=== PATIENT | female | born 1970 | race Caucasian/White ===

== ENCOUNTER 2017-07-06 07:48 | Emergency (ER) | payer SELFPAY ==
[2017-07-06 08:06] LABS: Bilirubin Negative (Negative); Blood, Urine Negative (Negative); Clarity CLEAR (Clear); Glucose, Urine (Dipstick) Negative (Negative); Leukocyte Negative (Negative); Nitrite Negative (Negative); Protein, Urine (Dipstick) Negative (Neg-Trace); Specific Gravity, Urine 1.009 (1.002-1.036); Urobilinogen 0.2 mg/dL (0.2-1.0)
[2017-07-06 08:36] LABS: #Eosinphils 0.1 thou/uL (0.0-0.7); #Lymphocytes 1.5 thou/uL (1.20-3.40); #Monocytes 0.3 thou/uL (0.11-0.59); #Neutrophils 3.2 thou/uL (1.40-6.50); %Basophils 0.7 % (0.0-1.0); %Eosinophils 1.9 % (0.0-10.0); %Lymphocytes 29.2 % (21.0-51.0); %Monocytes 5.7 % (0.0-10.0); %Neutrophils 62.5 % (42.0-75.0); Hemoglobin 13.9 g/dL (12.0-16.0); Mean Corpuscular HGB CONC 33.2 g/dL (32.0-36.0); Mean Corpuscular Hemoglobin 31.3 pg (27.0-31.0); Mean Corpuscular Volume 94.2 fl (81.0-99.0); Mean Platelet Volume 9.3 fL (7.4-10.4); Platelet Count 180 thou/uL (130-400); RBC Distribution Width 11.3 % (11.5-14.5); Red Blood Cell (RBC) Count 4.43 mill/uL (4.20-5.40); White Blood Cell (WBC) Count 5.1 thou/uL (4.8-10.8)
[2017-07-06 08:57] LABS: ALT (SGPT) 16 U/L (8-55); AST (SGOT) 28 U/L (5-34); Albumin 4.8 g/dL (3.5-5.0); Alkaline Phosphatase 62 U/L (40-150); Anion Gap 17 mmol/L (10-20); BUN (Urea Nitrogen) 10 mg/dL (7.0-18.7); Bilirubin, Total 1.4 mg/dL (0.2-1.2); Calc. Creatinine Clearance 0 mL/min (70-130); Calcium 11.1 mg/dL (7.8-10.44); Carbon Dioxide 20 mmol/L (22-29); Chloride 107 mmol/L (98-107); Estimated GFR-MDRD 77; Globulin 3.5 g/dL (2.4-3.5); Glucose 85 mg/dL (70-105); Lipase 24 U/L (8-78); Potassium 4.3 mmol/L (3.5-5.1); Protein, Total 8.3 g/dL (6.0-8.3); Sodium 140 mmol/L (136-145)
[2017-07-06] MEDS ORDERED: Morphine 4 MG/ML VIAL ONE ×2 (09:19→10:32)
[2017-07-06] MEDS ORDERED: Ondansetron HCl/PF 4 MG/2 ML Vial ONE (09:19)
[2017-07-06 09:23] LABS: BHCG - Serum Negative (NEGATIVE); Pregs Control Background? CLEAR/WHITE (CLR/WHITE); Pregs Control Bar Appear? YES (CONTROL BAR)
--- NOTE | 2017-07-06 10:32 | ULT ---
RIGHT UPPER QUADRANT GALLBLADDER ULTRASOUND: HISTORY: Gallbladder pain. COMPARISON: None. FINDINGS: The visualized portions of the pancreas are unremarkable. The common bile duct is just under 6 mm in size. The liver measures 15 cm in length. The main portal vein is patent with antegrade flow. The common bile duct measures 4 mm. Normal gall bladder wall thickness. There is cholelithiasis. The right kidney measures 9.8 x 4.3 x 4.6 cm without mass, hydronephrosis, or abnormal calcifications. IMPRESSION: Cholelithiasis without cholecystitis. POS: C
== END 2017-07-06 10:30 | disposition home or self-care (01) ==
LOC: ERS 07:48
DX: K80.20 Calculus of gallbladder without cholecystitis without obstruction (principal); E03.9 Hypothyroidism, unspecified; M19.90 Unspecified osteoarthritis, unspecified site; Z79.899 Other long term (current) drug therapy
CPT/HCPCS: 76705; 80053; 81003; 83690; 84703; 85025; 93005; 96361; 96374; 96375; 96376; J2270; J2405

== ENCOUNTER 2017-07-06 13:58 | Observation (INO) | payer SELFPAY ==
[2017-07-06] MEDS ORDERED: Ondansetron HCl/PF 4 MG/2 ML Vial ONE (15:48)
[2017-07-06] MEDS ORDERED: Fentanyl 100 MCG/2 ML VIAL ONE (15:48)
--- NOTE | 2017-07-06 17:13 | PDOC.EVN ---
Event Note - Event Note Event Note: Attedning H&P I personally evaluated the patient and discussed the management with Dr. Asencio. I have reviewed the H&P and it is repeated by me. I agree with the History, Examination, Assessment and Plan documented above with any addition or exceptions noted below. Ms. Thornton has intractable n/v. She has RUQ pain radiating to her back. Her exam is significant positive Ramirez's sign but absent rebound tenderness and her abdomen is not rigid. Her CBC is normal. Afrebrile. Vitals normal. Appears to have symptomatic gallstones. Dr Velazquez of [facility] has kindly agreed to see her.
[2017-07-06] MEDS ORDERED: Sodium Chloride 0.9% 1,000 ML IV SCH (17:27)
[2017-07-06] MEDS ORDERED: Ondansetron HCl/PF 4 MG/2 ML Vial IVP PRN ×2 (17:27→17:28)
[2017-07-06] MEDS ORDERED: Ondansetron ODT 4 MG TAB SL PRN (17:27)
[2017-07-06 17:37] VITALS: BMI 25.5
[2017-07-06] MEDS: Sodium Chloride 0.9% 1,000 ML IV SCH (17:58)
[2017-07-06] MEDS: Morphine 4 MG/ML VIAL SLOW IVP PRN ×2 (18:07→22:40)
[2017-07-06] MEDS: Promethazine HCl 25 MG/ML VIAL IM/IV PRN (18:11)
[2017-07-06 18:28] LABS: Bilirubin, Direct 0.4 mg/dL (0.1-0.3); Bilirubin, Total 1.2 mg/dL (0.2-1.2)
--- NOTE | 2017-07-07 00:14 | HP-2 ---
CODE STATUS: FULL. PRIMARY CARE PHYSICIAN: [facility] jorge. ATTENDING PHYSICIAN: Bc Kenney MD RESIDENT: Sea Asencio DO HISTORIAN: Patient. CHIEF COMPLAINT: Nausea, vomiting, abdominal pain. HISTORY OF PRESENT ILLNESS: The patient had an onset of intractable nausea and vomiting with right upper quadrant pain and diarrhea started 2-1/2 days ago without associated fever or chills. The patient has had 1 similar episode approximately two months ago without association to include food; however, the previous episode was not severe and did not last as long. The patient presented to the ER earlier this morning, where she was evaluated and ultrasound showed a cholelithiasis without cholecystitis. The patient was given Tylenol No. 3 and Zofran and discharged home with instructions to follow up with the surgeon as outpatient. The patient returned to the emergency room due to the pain. We were called for admission due to intractable nausea, vomiting, and uncontrolled abdominal pain. PAST MEDICAL HISTORY: Hypothyroid and GERD. PAST SURGICAL HISTORY: Carpal tunnel release on the left and unknown jaw surgery in 1979. ALLERGIES: No known drug allergies. MEDICATIONS: Synthroid 50 mcg daily, omeprazole 40 mg daily, Motrin 600 mg b.i.d., Tylenol No. 3 q.4-6 hours, and Zofran 4 mg q.6 hours p.r.n. SOCIAL HISTORY: The patient is a former smoker, former alcohol addict, and a former multi-substance abuser; however, the patient has had none of these things in the past 8 years. REVIEW OF SYSTEMS: General: The patient denies fever, chills, changes in appetite, night sweats. HEENT: Denies changes in vision, eye pain, nasal congestion. Respiratory: Denies cough, congestion, shortness of breath. Cardiovascular: Denies any chest pain, palpitations, edema. Gastrointestinal: Admits to nausea, vomiting, diarrhea without constipation, and has abdominal pain. Genitourinary: Denies incontinence, dysuria. Skin: Denies any rashes or lesions. Musculoskeletal: Denies any pain or tenderness. Neurologic: Denies any weakness or numbness. Psychiatric: Denies anxiety or depression. PHYSICAL EXAMINATION: VITAL SIGNS: Blood pressure 128/85, pulse 70, respiratory rate 17, T-max 97.8, pulse ox 99% on room air, current weight 68.5 kg. GENERAL: The patient is alert, oriented x3, in no apparent distress, well nourished, and appropriately interactive. HEENT: PERRLA. EOMI. Conjunctivae within normal limits. NECK: Supple. CARDIOVASCULAR: Regular rate and rhythm. No murmurs or gallops. RESPIRATORY: Normal effort. No retractions. Clear to auscultation bilaterally. SKIN: Warm and dry without cyanosis. ABDOMEN: Rigid. Tender to palpation in the right upper quadrant without rebound tenderness. Bowel sounds in all 4 quadrants. There are no masses or distention. EXTREMITIES: No clubbing or cyanosis. MUSCULOSKELETAL: Structure is normal. Tone is normal. NEUROLOGIC: No focal neurological deficit. Sensation is within normal limits. Cranial nerves II-XII are grossly intact. PSYCHIATRIC: Appropriate. LABORATORY DATA: CBC: Hemoglobin is 13.9, hematocrit 41.7, white count 5.1, platelets 180. CMP: Sodium 140, potassium 4.3, chloride 107, bicarbonate 20, BUN 10, creatinine 0.79, glucose is 85, calcium is 11.1, total serum protein 8.3 , albumin is 4.8, total bilirubin is 1.4, AST 26, ALT 16, alkaline phosphatase is 62. ACT is negative. Lipase is 24. UA, specific gravity 1.009, blood negative, protein negative, leukocyte esterase negative, nitrites negative, ketones negative, glucose negative, rbc's negative, wbc's negative, bacteria negative. IMAGING: Abdominal ultrasound shows cholelithiasis without cholecystitis. ASSESSMENT AND PLAN: This is a 47-year-old female with intractable nausea and vomiting secondary to biliary colic. 1. Intractable nausea and vomiting. Make n.p.o. IV normal saline at 100 mL per hour. Zofran and Phenergan p.r.n. Morphine p.r.n. and consult general surgery. 2. Hypercalcemia, corrects to 10.5. Order PTH. 3. Hyperbilirubinemia. Get a fractionated bilirubin and continue evaluation pending results. 4. Gastroesophageal reflux disease. Continue her omeprazole when she is not n.p.o. 5. Hypothyroidism. Continue her home Synthroid. MTDD
[2017-07-07] MEDS: Morphine 4 MG/ML VIAL SLOW IVP PRN ×2 (04:01→08:37)
[2017-07-07] MEDS: Sodium Chloride 0.9% 1,000 ML IV SCH (04:01)
[2017-07-07 04:31] LABS: #Eosinphils 0.1 thou/uL (0.0-0.7); #Lymphocytes 1.1 thou/uL (1.20-3.40); #Monocytes 0.3 thou/uL (0.11-0.59); #Neutrophils 2.1 thou/uL (1.40-6.50); %Basophils 1.3 % (0.0-1.0); %Lymphocytes 30.9 % (21.0-51.0); %Monocytes 7.2 % (0.0-10.0); %Neutrophils 57.5 % (42.0-75.0); Hemoglobin 12.1 g/dL (12.0-16.0); Mean Corpuscular HGB CONC 33.4 g/dL (32.0-36.0); Mean Corpuscular Hemoglobin 31.9 pg (27.0-31.0); Mean Corpuscular Volume 95.6 fl (81.0-99.0); Mean Platelet Volume 8.7 fL (7.4-10.4); Platelet Count 155 thou/uL (130-400); RBC Distribution Width 11.1 % (11.5-14.5); Red Blood Cell (RBC) Count 3.78 mill/uL (4.20-5.40); White Blood Cell (WBC) Count 3.7 thou/uL (4.8-10.8)
[2017-07-07 05:08] LABS: ALT (SGPT) 12 U/L (8-55); AST (SGOT) 16 U/L (5-34); Alkaline Phosphatase 52 U/L (40-150); Anion Gap 11 mmol/L (10-20); BUN (Urea Nitrogen) 6 mg/dL (7.0-18.7); Bilirubin, Total 1.5 mg/dL (0.2-1.2); Calc. Creatinine Clearance 92 mL/min (70-130); Calcium 9.4 mg/dL (7.8-10.44); Carbon Dioxide 25 mmol/L (22-29); Chloride 109 mmol/L (98-107); Estimated GFR-MDRD 75; Globulin 2.6 g/dL (2.4-3.5); Glucose 80 mg/dL (70-105); Potassium 3.6 mmol/L (3.5-5.1); Protein, Total 6.6 g/dL (6.0-8.3); Sodium 141 mmol/L (136-145)
[2017-07-07] MEDS: Levothyroxine Sodium 50 MCG TAB PO SCH (05:37)
[2017-07-07] MEDS: Promethazine HCl 25 MG/ML VIAL IM/IV PRN (07:01)
--- NOTE | 2017-07-07 07:24 | PDOC.FM ---
- Subjective Subjective: Pt states that her pain has not improved from last night and she continues to have significant RUQ pain that radiates to the R thoracic back. She has continued N/V that is controlled by Phenergan. She denies fever, chills, worsening of symptoms or other symptoms in ROS - Objective Vital Signs & Weight: Vital Signs (12 hours) Temp Pulse Resp BP Pulse Ox 07/07/17 04:00 98.3 F 73 16 126/71 98 07/06/17 22:40 75 16 119/68 96 07/06/17 19:41 98.2 F 73 18 118/69 98 Weight Weight 69.57 kg I&O: 07/06/17 07/07/17 07/08/17 06:59 06:59 06:59 Intake Total 1322 Output Total 0 Balance 1322 Result Diagrams: 07/07/17 04:16 07/07/17 04:16 Phys Exam - Physical Examination Constitutional: NAD HEENT: PERRLA, oral pharynx no lesions Neck: no nodes Respiratory: clear to auscultation bilateral Cardiovascular: RRR, no significant murmur Gastrointestinal: no distention, positive bowel sounds RUQ tenderness that radiates to T4-5 on the right Musculoskeletal: no edema Neurological: non-focal, normal sensation, moves all 4 limbs Psychiatric: normal affect, A&O x 3 Skin: no rash Dx/Plan (1) Biliary colic Code(s): K80.50 - CALCULUS OF BILE DUCT W/O CHOLANGITIS OR CHOLECYST W/O OBST Status: Acute (2) Cholelithiasis Code(s): K80.20 - CALCULUS OF GALLBLADDER W/O CHOLECYSTITIS W/O OBSTRUCTION Status: Acute (3) Hyperparathyroidism Code(s): E21.3 - HYPERPARATHYROIDISM, UNSPECIFIED Status: Chronic (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 Biliary colic - Pending gen surg consult. Possible lap power today - currently NPO - control pain w/morphine prn - control n/v with phenergan and zofran - NS at 100 mls/hr 2. Cholelithiasis - per US. Likely source of biliary colic - CBD does not appear to be obstructed 3. Hyperparathyroidism - incidental finding. Currently asymptomatic. - follow up outpt 4. Unconjugated hyperbilirubinemia - likely Gilbert's. Pt states that she has been told in the past that her eyes become yellow when she is sick - follow up out pt
[2017-07-07] MEDS ORDERED: cefOXitin 2 GM in Sodium Chloride 0.9% 100 ML IVPB SCH (07:45)
[2017-07-07] MEDS ORDERED: cefOXitin 2 GM, Syringe 1 ML in Sterile Water 10 ML SLOW IVP SCH (08:00)
--- NOTE | 2017-07-07 08:27 | HP ---
CHIEF COMPLAINT: Right upper quadrant abdominal pain. HISTORY OF PRESENT ILLNESS: This is a 47-year-old female with a 24-hour history of right upper quadr ant pain radiating to the back associated with nausea. Ultrasound showed cholelithiasis. She was se en in the ER and then discharged and then came back to the ER, because her pain was getting worse. PAST MEDICAL HISTORY: Hypothyroidism. PAST SURGICAL HISTORY: She has had wrist and jaw surgery. MEDICATIONS: Levothyroxine, omeprazole. ALLERGIES: No known drug allergies. SOCIAL HISTORY: She is . She works for a nonprofit. No tobacco or alcohol. FAMILY HISTORY: Noncontributory. PHYSICAL EXAMINATION: VITAL SIGNS: Temperature 98.3, pulse 75, blood pressure 126/71. GENERAL: She is sitting up in severe pain. HEENT: No jaundice. LUNGS: Clear. HEART: Regular rate and rhythm. ABDOMEN: Very tender in the right upper quadrant with a positive Ramirez's sign. EXTREMITIES: Unremarkable. LABORATORY DATA AND IMAGING: White count 3.7, H&H is 12 and 36, platelet count 155. Electrolytes sh ow glucose of 80, creatinine 0.8. Her total bilirubin is elevated at 1.5. Ultrasound shows cholelit hiasis. ASSESSMENT: Acute cholecystitis with elevated liver functions. PLAN: Laparoscopic cholecystectomy with cholangiogram. CONSENT: I have discussed the planned procedure as well as risk of bleeding, infection, injury to bi le duct, injury to bowel, need to open. She understands and gives informed consent.
[2017-07-07] MEDS ORDERED: FLU VACC QS2017-18 36 mo. & older 0.5 ML SYRINGE IM ONE (09:00)
[2017-07-07] MEDS ORDERED: Bupivacaine/Epinephrine 0.25% 30 ML VIAL ONE (09:40)
[2017-07-07] MEDS ORDERED: Iothalamate Meglumine 60% 50 ML VIAL FS ONE (09:40)
[2017-07-07] MEDS ORDERED: Promethazine HCl 25 MG/ML VIAL ONE (09:51)
[2017-07-07] MEDS ORDERED: HYDROmorphone 0.5 MG/0.5 ML SYRINGE ONE (09:51)
[2017-07-07] MEDS ORDERED: Fentanyl 100 MCG/2 ML VIAL ONE (09:51)
[2017-07-07] MEDS ORDERED: Dextrose 50% Abboject 50 ML SYRINGE SLOW IVP PRN (10:49)
[2017-07-07] MEDS ORDERED: hydrALAZINE 20 MG/ML VIAL SLOW IVP PRN (10:49)
[2017-07-07] MEDS ORDERED: HYDROcodone/Acetaminophen 10/325 mg Tablet PO PRN (10:49)
[2017-07-07] MEDS ORDERED: Promethazine HCl 25 MG/ML VIAL IM PRN ×2 (10:49→11:00)
[2017-07-07] MEDS ORDERED: Ondansetron HCl/PF 4 MG/2 ML Vial IVP PRN ×2 (10:49→11:00)
[2017-07-07] MEDS ORDERED: Dextrose 5% in Water 1,000 ML IV PRN (10:49)
[2017-07-07] MEDS ORDERED: Mag-Al 1200 mg/1200 mg/30 ML UDCUP PO PRN (10:49)
[2017-07-07] MEDS ORDERED: Morphine 4 MG/ML VIAL SLOW IVP PRN ×2 (10:49)
[2017-07-07] MEDS ORDERED: Calcium Carbonate 500 MG ChewTAB PO PRN (10:49)
[2017-07-07] MEDS ORDERED: HYDROmorphone 2 MG/ML VIAL SLOW IVP PRN (11:00)
[2017-07-07] MEDS ORDERED: Promethazine HCl 25 MG/ML VIAL SLOW IVP PRN (11:00)
--- NOTE | 2017-07-07 11:44 | OP ---
PREOPERATIVE DIAGNOSIS: Severe biliary colic with elevated bilirubin. SURGEON: Sea Velazquez M.D. PROCEDURE PERFORMED: Laparoscopic cholecystectomy with intraoperative cholangiogram. INDICATIONS: Patient is a 47-year-old female who has had a 24-hour history of severe right upper lisa drant pain to the back, associated with nausea, vomiting. She had an ultrasound showing cholelithias is. She had elevated bilirubin and acholic stools. FINDINGS: Very elongated gallbladder, long cystic duct. Intraoperative cholangiogram was fine. DESCRIPTION OF PROCEDURE: After informed consent was obtained, the patient was taken to the operatin g room and given general endotracheal anesthesia. She was placed in the supine position. The abdome n was prepped and draped in the usual fashion. Local anesthesia infiltrated subcutaneously and deep and a subumbilical incision was performed, subcu divided sharply. The fascia grasped and two stay peng tures of 0 Vicryl placed either side of midline. Midline incised. Digital palpation revealed no loc al adhesions. A blunt 10-12 mm trocar inserted. Pneumoperitoneum was created to a pressure of 15 mm Hg. A 0 degree laparoscope inserted. Under direct vision, three 5 mm ports placed subcostally. The gallbladder grasped and advanced superiorly. Peritoneum lysed distally revealed small cystic duct a nd artery as well as duct and artery and critical view were dissected out. A clip was placed at the base of the gallbladder. Arrow cholangiocatheter inserted. Intraoperative cholangiogram was perform ed with fluoroscopy showed free flow into the duodenum, no filling defects. The catheter removed. T he duct triply ligated and divided. The artery triply ligated and divided. The gallbladder was darin marni from its fossa utilizing electrocautery, removed from the abdomen through the umbilical port. He mostasis was assured. Trocars and retractors removed. The fascia closed with interrupted 0 Vicryl s uture. The skin closed with interrupted 4-0 Rapide. Dermabond applied. The patient tolerated the p rocedure well and transferred to recovery in good condition. Sponge and needle count verified correc t x2.
--- NOTE | 2017-07-07 11:49 | RAD ---
INTRAOPERATIVE CHOLANGIOGRAM: HISTORY: Cholelithiasis. FINDINGS: Two spot fluoroscopic intraoperative images of the right upper quadrant during an intraoperative chol angiogram demonstrates opacification of the common duct and the main hepatic duct and some of their b ranches without filling defects. There is contrast in the second portion of the duodenum. Surgical instruments are in the field of view. POS: RUIZ
[2017-07-07] MEDS ORDERED: Ondansetron HCl/PF 4 MG/2 ML Vial ONE (12:21)
[2017-07-07] MEDS ORDERED: Propofol 200 MG/20 ML VIAL ONE (12:21)
[2017-07-07] MEDS ORDERED: Dexamethasone 20 MG/5 ML VIAL ONE (12:21)
[2017-07-07] MEDS ORDERED: Lidocaine 1% PF 5 ML VIAL ONE (12:21)
[2017-07-07] MEDS ORDERED: Succinylcholine Chloride 20 MG/ML 10 ml SYRINGE FS ONE (12:21)
[2017-07-07] MEDS ORDERED: Glycopyrrolate 0.2 MG/ML 5 ML SYRINGE ONE (12:21)
[2017-07-07] MEDS ORDERED: Ketorolac Tromethamine 30 MG/ML VIAL ONE (12:21)
[2017-07-07] MEDS: D5 1/2 NS w/20 mEq KCL 1,000 ML IV SCH ×2 (12:25→20:15)
[2017-07-07] MEDS: Ondansetron ODT 4 MG TAB PO PRN (15:12)
[2017-07-07] MEDS: Famotidine/PF 20 mg/2ml Vial SLOW IVP SCH (20:15)
[2017-07-07] MEDS: Famotidine 20 MG TAB PO SCH (20:15)
[2017-07-07] MEDS: HYDROcodone/Acetaminophen 10/325 mg Tablet PO PRN (21:58)
[2017-07-08] MEDS: D5 1/2 NS w/20 mEq KCL 1,000 ML IV SCH (03:54)
[2017-07-08] MEDS: HYDROcodone/Acetaminophen 10/325 mg Tablet PO PRN (03:58)
[2017-07-08 04:55] LABS: #Basophils 0.1 thou/uL (0.0-0.2); #Eosinphils 0.1 thou/uL (0.0-0.7); #Lymphocytes 1.4 thou/uL (1.20-3.40); #Monocytes 0.4 thou/uL (0.11-0.59); #Neutrophils 3.6 thou/uL (1.40-6.50); %Basophils 0.9 % (0.0-1.0); %Eosinophils 1.4 % (0.0-10.0); %Lymphocytes 24.7 % (21.0-51.0); %Monocytes 7.1 % (0.0-10.0); %Neutrophils 65.9 % (42.0-75.0); Hemoglobin 12.5 g/dL (12.0-16.0); Mean Corpuscular HGB CONC 32.9 g/dL (32.0-36.0); Mean Corpuscular Hemoglobin 31.7 pg (27.0-31.0); Mean Corpuscular Volume 96.3 fl (81.0-99.0); Mean Platelet Volume 8.7 fL (7.4-10.4); Platelet Count 149 thou/uL (130-400); RBC Distribution Width 11.2 % (11.5-14.5); Red Blood Cell (RBC) Count 3.94 mill/uL (4.20-5.40); White Blood Cell (WBC) Count 5.5 thou/uL (4.8-10.8)
[2017-07-08] MEDS: Levothyroxine Sodium 50 MCG TAB PO SCH (05:06)
[2017-07-08 05:12] LABS: ALT (SGPT) 16 U/L (8-55); AST (SGOT) 20 U/L (5-34); Albumin 4.3 g/dL (3.5-5.0); Alkaline Phosphatase 52 U/L (40-150); Anion Gap 12 mmol/L (10-20); BUN (Urea Nitrogen) 8 mg/dL (7.0-18.7); Bilirubin, Total 1.1 mg/dL (0.2-1.2); Calc. Creatinine Clearance 91 mL/min (70-130); Calcium 10.1 mg/dL (7.8-10.44); Carbon Dioxide 28 mmol/L (22-29); Chloride 103 mmol/L (98-107); Estimated GFR-MDRD 74; Globulin 2.4 g/dL (2.4-3.5); Glucose 114 mg/dL (70-105); Lipase 22 U/L (8-78); Potassium 3.9 mmol/L (3.5-5.1); Protein, Total 6.7 g/dL (6.0-8.3); Sodium 139 mmol/L (136-145)
--- NOTE | 2017-07-08 05:37 | PDOC.FM ---
- Subjective Subjective: Pt is doing well today, pain is well controlled. Pt denies fever, chills, n/v and all other symptoms in ROS. There were no acute issues over night. - Objective MAR Reviewed: Yes Vital Signs & Weight: Vital Signs (12 hours) Temp Pulse Resp BP BP Pulse Ox 07/08/17 05:14 98 07/08/17 05:09 98.3 F 77 16 128/77 98 07/07/17 20:13 98.1 F 66 16 07/07/17 19:50 98.1 F 66 16 125/63 96 Weight Weight 69.57 kg I&O: 07/06/17 07/07/17 07/08/17 06:59 06:59 06:59 Intake Total 1322 911 Output Total 0 Balance 1322 911 Result Diagrams: 07/08/17 04:45 07/08/17 04:45 <Sea Asencio - Last Filed: 07/08/17 05:34> - Objective Vital Signs & Weight: Vital Signs (12 hours) Temp Pulse Resp BP BP Pulse Ox 07/08/17 08:45 98.1 F 74 16 07/08/17 08:00 98.1 F 74 16 135/88 99 07/08/17 05:14 98 07/08/17 05:09 98.3 F 77 16 128/77 98 Weight Weight 69.57 kg I&O: 07/07/17 07/08/17 07/09/17 06:59 06:59 06:59 Intake Total 1322 1111 Output Total 0 Balance 1322 1111 Result Diagrams: 07/08/17 04:45 07/08/17 04:45 <Wesley Brennan - Last Filed: 07/08/17 13:11> Phys Exam - Physical Examination Constitutional: NAD HEENT: PERRLA, moist MMs Neck: no nodes, no JVD, supple, full ROM Respiratory: clear to auscultation bilateral Cardiovascular: RRR, no significant murmur Gastrointestinal: no distention, positive bowel sounds Appropriatly tender for post op day 1 Musculoskeletal: no edema Neurological: non-focal, normal sensation, moves all 4 limbs Lymphatic: no nodes Psychiatric: normal affect, A&O x 3 Skin: no rash <Sea Asencio - Last Filed: 07/08/17 05:34> Dx/Plan (1) Biliary colic Code(s): K80.50 - CALCULUS OF BILE DUCT W/O CHOLANGITIS OR CHOLECYST W/O OBST Status: Resolved (2) Cholelithiasis Code(s): K80.20 - CALCULUS OF GALLBLADDER W/O CHOLECYSTITIS W/O OBSTRUCTION Status: Resolved (3) Hyperparathyroidism Code(s): E21.3 - HYPERPARATHYROIDISM, UNSPECIFIED Status: Chronic (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 Biliary colic - s/p lap power post op day 1 - control pain w/motrin - advance diet as tolerated - ready for dc today pending pain control. 2. Cholelithiasis - as above 3. Hyperparathyroidism - incidental finding. Currently asymptomatic. - follow up outpt 4. Unconjugated hyperbilirubinemia - likely Gilbert's. Pt states that she has been told in the past that her eyes become yellow when she is sick - follow up out pt <Sea Asencio - Last Filed: 07/08/17 05:34> Attending Addendum - Attending Addendum I reviewed the patient and discussed the management with Dr. Asencio. I agree with the History, Examination, Assessment and Plan documented above with any addition or exceptions noted below. I did not personally evaluate the patient on this date of service as she had been discharged by Dr. Velazquez prior to my rounds. [facility] <Wesley Brennan - Last Filed: 07/08/17 13:11>
[2017-07-08] MEDS ORDERED: Ibuprofen 800 MG TAB PO PRN (06:44)
[2017-07-08] MEDS ORDERED: traMADol HCl 50 MG TAB PO PRN (06:44)
[2017-07-08 08:27] VITALS: BP 135/88; TEMP 98.1
[2017-07-08] MEDS: Ondansetron ODT 4 MG TAB PO PRN (08:46)
[2017-07-08] MEDS ORDERED: Enoxaparin Sodium 40 MG/0.4 ML SYRINGE SC SCH (09:00)
[2017-07-08] MEDS: Famotidine 20 MG TAB PO SCH (09:53)
[2017-07-08] MEDS: Famotidine/PF 20 mg/2ml Vial SLOW IVP SCH (10:31)
--- NOTE | 2017-07-08 13:51 | DIS ---
DATE OF ADMISSION: 07/06/2017 DATE OF DISCHARGE: 07/08/2017 DISCHARGE DIAGNOSIS: Severe biliary colic. PROCEDURES DURING ADMISSION: Laparoscopic cholecystectomy with intraoperative cholangiogram. HOSPITAL COURSE: The patient was admitted to the [facility], she was found to have gall stones. General Surgery was consulted. She had some elevated liver functions, so she underwent a la paroscopic cholecystectomy with cholangiogram. Postoperatively, she has done well. She is toleratin g liquids, but when she tries to eat solid, she had an episode of emesis. She is having a lot of domo rrhea, but she feels like she can keep up her fluids orally. She is discharged home in good conditio n on tramadol and Zofran. She will follow up with me in 2 weeks.
--- NOTE | 2017-07-08 18:24 | DIS-2 ---
DATE OF ADMISSION: 07/06/2017. DATE OF DISCHARGE: 07/08/2017. RESIDENT: Sea Asencio DO ADMITTING ATTENDING: Bc Kenney MD DISCHARGE ATTENDING: Wesley Brennan MD CONSULTATION: Yassine Velazquez MD, General Surgery. PROCEDURE: Laparoscopic cholecystectomy. PRIMARY DIAGNOSIS: Biliary colic. SECONDARY DIAGNOSES: Cholelithiasis without cholecystitis, intractable nausea and vomiting, hypothyr oidism, hyperparathyroidism, and likely Gilbert's disease. DISCHARGE MEDICATIONS: Omeprazole 40 mg p.o. b.i.d., Synthroid 50 mcg p.o. daily, tramadol 50 p.o. q .6 hours p.r.n. pain. DISCONTINUED MEDICATIONS: None. HOSPITAL COURSE: The patient was admitted with intractable nausea, vomiting, abdominal pain after lafleur ving been diagnosed previously on the day with cholelithiasis without cholecystitis. Once admitted, the patient was given Phenergan and Zofran for nausea and [place] and morphine for pain. General Surge ry was consulted. Upon consult, it was determined that the patient was appropriate for a cholecystec sabine, which was completed on the day after admission and was without complication. On the day of angy francoise, the patient elected to remain in the hospital for pain management as the patient would be unabl e to take narcotics due to the fact that she was returning to an inpatient drug rehab facility. On p ostop day #1, pain was well controlled. The patient was taking p.o. without problem. The patient wa s transitioned to tramadol for pain and was discharged with instructions to follow up with PCP and Dr Elvin Velazquez. DISPOSITION: Stable. DISCHARGE INSTRUCTIONS: 1. Location: Inpatient drug rehab facility. 2. Diet: Low fat. 2. Activity: Ad kathryn. 3. Followup: With Dr. Velazquez in 1 week and with the PCP within 1 week.
== END 2017-07-08 10:43 | disposition home or self-care (01) ==
LOC: ERS 13:58 → 2SW 15:52
PROVIDERS: ADMIT Family Medicine; ATTEND Family Medicine
PROC: 0FT44ZZ Resection of Gallbladder, Percutaneous Endoscopic Approach (ICD-10-PCS; principal; 2017-07-06)
PROC: BF131ZZ Fluoroscopy of Gallbladder and Bile Ducts using Low Osmolar Contrast (ICD-10-PCS; 2017-07-06)
DX: K81.1 Chronic cholecystitis (principal); E03.9 Hypothyroidism, unspecified; E21.3 Hyperparathyroidism, unspecified; K21.9 Gastro-esophageal reflux disease without esophagitis; E80.6 Other disorders of bilirubin metabolism; Z79.899 Other long term (current) drug therapy; Z98.890 Other specified postprocedural states
CPT/HCPCS: 36415; 47532; 80053; 82247; 82306; 83690; 83970; 84100; 85025; 88304; 90471; 90682; 96361; 96372; 96374; 96375; 96376; A4216; G0008; G0378; J0694; J1100; J1170; J1885; J2001; J2270; J2405; J2550; J2704; J3010; Q0162; Q2036; Q9961